=== PATIENT | male | born 1955 | race Two or more races ===

== ENCOUNTER 2023-11-17 18:55 | Observation (INO) | payer MEDICARE, OTHER, SELFPAY ==
--- NOTE | 2023-11-17 13:50 | ED.GENMED ---
History of Present Illness
General
Chief Complaint: Weakness
Source: patient and ambulance crew
Exam Limitations: none
Time Seen by Provider: 11/17/23 13:40
Nursing documentation reviewed up to this point in time: agreed with
Travel History
Have you had any contact with someone who has COVID-19?: No
Do you have any symptoms of coronavirus? Fever > 100 degrees, chills, cough, shortness of breath, sore throat, loss of taste or smell, muscle aches, or headache?: Yes
Symptoms:: cough headache
History of Present Illness
History of Present Illness:
68-year-old male with a past medical history of hemorrhagic stroke with residual left-sided weakness who presents to the emergency room via EMS from home for evaluation of flulike illness. Patient reports that he started feeling unwell last night
says that he started getting nasal congestion and has had a dry cough. He says that he has had generalized bodyaches. He says that this morning in addition to the symptoms he felt increasing generalized weakness and trouble getting up out of a
chair. EMS called to bring her to the emergency room for evaluation. He has not noticed any fever or chills. He denies any chest pain. He denies any shortness of breath. Denies any GI symptoms. Otherwise generalized weakness he denies any
focal weakness�he has chronic weakness in the left arm and left leg from his stroke as well as a left facial droop left upper from a stroke and he says these are unchanged. He does report a right-sided headache and he says that at least this
symptom is 'similar to when I had my stroke.'
Review of Systems
Review of Systems
All Other Systems: ROS reviewed and negative except as documented in HPI and ROS
Constitutional: Reports fatigue; Denies fever or chills
EENT: Reports runny nose and other (Congestion); Denies sore throat
Respiratory: Reports cough; Denies trouble breathing
Cardiac: Denies chest pain or palpitations
ABD/GI: Denies abdominal pain, nausea or vomiting
: Denies flank pain
Musculoskeletal: Reports muscle pain (Myalgias); Denies neck pain or back pain
Neurological: Reports headache and weakness (Generalized); Denies dizzy or numbness
Phy Exam
Physical Exam
Physical Exam:
General: Awake, alert, oriented x3; no acute distress
Head: Normocephalic, atraumatic
Eyes: Conjunctiva normal, EOMI, pupils equal round reactive to light bilateral
Throat: Airway intact, handling secretions
Neck: Trachea midline, supple without meningismus
Lungs: Clear to auscultation bilaterally, no wheezing, rales, rhonchi
Heart: Regular rate and rhythm, no murmurs, gallops, or rubs
Abd: Soft, non distended, nontender
Neuro: Patient has left-sided facial droop which he says is unchanged; speech is fluent without dysarthria or aphasia; he has left-sided weakness 3/5 in the upper and lower extremity which she says is unchanged; strength and sensation 5/5 right
upper and lower extremity
Skin: no rash
Extremities: No edema in extremities, equal pulses in all extremities
Scores
Heart Failure Risk
Heart Failure Risk Score: Not Applicable
Heart Score for Chest Pain Patients
STEMI patient?: Not applicable
Withdrawal Assessment of Alcohol
Withdrawal Assessment Completed?: Not applicable
Course
Orders/Labs/Results
Orders:
Orders
11/17/23 13:41
Electrocardiogram (*1) Urgent
Reason for Study: Other
Other Reason for Exam: Possible Stroke
Bedside Glucose- Treatment ONCE
Bedside Glucose- Treatment ONCE
Cardiac Monitoring- Treatment ONCE
Cardiac Monitoring- Treatment ONCE
EKG- Treatment ONCE
EKG- Treatment ONCE
IV Insert/Care/Rem.- Treatment PRN
Vital Signs- Treatment ONCE
Frequency: Hourly
Vital Signs As Directed
Frequency: Other
Weight As Directed
Frequency: Once
Comment: ZERO STRETCHER SCALE FOR ACCURATE WEIGHT
O2 Therapy [RESP] Urgent
Titrate/Wean O2 to maintain O2 sat greater than (%): 93
Special Instructions: MAINTAIN CONTINUOUS O2 SATS > OR = 93%
11/17/23 13:44
Complete Blood Count/With Diff Urgent
Comprehensive Metabolic Panel Urgent
PTT Urgent
Prothrombin Time Urgent
Troponin I Urgent
11/17/23 13:49
CT Head W/o Iv Contrast Urgent
Comment:
Reason For Exam: right sided headache
11/17/23 13:50
COVID-19 Antigen Urgent
Source: Nasal Swab
Influenza A+B Rapid Molecular Urgent
HORTENCIA Source: Nasal Swab
Specimen Description:
11/17/23 14:02
CR Chest - 2 Views Urgent
Comment:
Reason For Exam: cough
11/17/23 14:30
Case Management Consult ONCE
Case Management Consult: Discharge Planning
Pt Eval And Treat Urgent
Activity Level: Ambulate
11/17/23 Dinner
Regular
11/17/23 17:56
Oseltamivir Phosphate [Tamiflu] 75 mg PO NOW STA
11/17/23 18:37
Admit/Transfer Patient As Directed
Co-Sign Provider:
Level of Care: Observation services
Assign to:: Medical/Surgical
Physician / Group: [email or web address]
Diagnosis: influenza a infection
11/17/23 18:38
Code Status As Directed
Resuscitation Status: Full Code
11/17/23 19:33
Blood Culture Q30M
HORTENCIA Source: Blood/Venous
Specimen Description:
Blood Culture Q30M
HORTENCIA Source: Blood/Venous
Specimen Description:
11/17/23 19:53
Acetaminophen [Tylenol] 650 mg PO Q4HPRN PRN
11/17/23 19:53
Activity As Directed
Activity Level: As Tolerated
Vital Signs As Directed
Frequency: Per unit guidelines
Ot Eval And Treat Routine
DX Deep Vein Thrombosis Video Routine
11/17/23 20:00
Heparin 5,000 units SC Q12
METFORMIN HCl [Glucophage] 1,000 mg PO BID AT 0800,1700
11/18/23 06:00
Complete Blood Count/With Diff IN AM
Comprehensive Metabolic Panel IN AM
11/18/23 08:00
Baclofen [Lioresal] 10 mg PO DAILY
Cholecalciferol (Vitamin D3) [VITAMIN D3 (cholecalciferol)] 25 mcg PO DAILY
Labetalol [Trandate] 200 mg PO DAILY
Lisinopril [Zestril] 10 mg PO DAILY
Oseltamivir Phosphate [Tamiflu] 75 mg PO BID
11/18/23 18:00
Baclofen [Lioresal] 20 mg PO QPM
Citalopram [Celexa] 20 mg PO QPM
Rosuvastatin Calcium [Crestor] 5 mg PO QPM
Abnormal Lab Results
11/17/23 11/17/23
13:43 13:44
RBC 4.23 L 10^6/uL
(4.70-6.10)
Hgb 10.9 L g/dL
(13.0-18.0)
Hct 34.1 L %
(39.0-52.0)
MCH 25.8 L pg
(27.0-31.0)
MCHC 32.0 L g/dL
(33.0-37.0)
RDW 15.8 H %
(11.5-14.5)
Plt Count 126 L 10^3/uL
(130-400)
MPV 10.8 H fL
(7.4-10.4)
Absolute Lymphs (auto) 0.6 L 10^3/uL
(1.2-3.4)
Absolute Monos (auto) 0.7 H 10^3/uL
(0.1-0.6)
Neutrophils % 80.1 H %
(42.2-75.2)
Lymphocytes % 8.9 L %
(20.5-51.1)
Monocytes % 9.8 H %
(1.7-9.3)
Glucose 100 H mg/dl
(70-99)
POC Glucose 110 H mg/dl
(70-99)
11/17/23 13:44
11/17/23 13:44
Vital Signs
Initial and Last Documented VS:
Initial Vital Signs
Pulse Resp Pulse Ox
83 16 94
11/17/23 13:41 11/17/23 13:41 11/17/23 13:41
Last Documented Vital Signs
Temp Pulse Resp BP Pulse Ox
38.3 C H 93 20 126/80 93
11/17/23 18:36 11/17/23 19:30 11/17/23 19:30 11/17/23 16:06 11/17/23 16:15
MDM/Problems Addressed
Differential Diagnosis Includes:
Influenza, COVID, other viral illness, pneumonia, anemia, electrolyte derangement; much lower suspicion for stroke as he has no new focal weakness symptoms are more generalized
MDM/Problems Addressed:
68-year-old male presents for evaluation of congestion and cough, body aches and generalized weakness that started yesterday. He also has a right-sided headache. Vital signs are normal. Exam as above. Plan to place an IV check labs including a
CBC and a CMP, viral swabs. Will check an EKG. Will check CT head in an abundance of caution as patient says he has had brain hemorrhage with similar headache in the past. Will check a chest x-ray rule out pneumonia. Monitor closely reassess
after the above.
Labs reviewed: CBC shows marginal anemia otherwise unremarkable. CMP unremarkable. CT head negative, chest x-ray no acute disease. Patient's flu swab was positive which I think accounts for his symptoms. is now at bedside she is very
concerned about his functional status that she cannot care for him with his current degree of weakness. No clear medical indication for admission explained that he would likely benefit from rehab if this is the case. Case management evaluated
patient as did physical therapy unfortunately they were unable to place patient in rehab after the emergency room. Admitted to the hospitalist pending placement.
Chronic conditions affecting care:
Prior CVA
*Radiology
Radiology exam reviewed: preliminary read by ED provider and radiology read reviewed
*Pulse Oximetry
Patient hypoxic: no
*EKG
Interpreted by ED Provider?: Yes
Heart Rate: 83
Rate: normal
Rhythm: sinus
[place]: normal axis
Interval: normal interval
QRS Pattern: normal QRS
Ischemia: no ischemia
*Critical Care Note
Total Time (30-74mins, 75-104mins- exclusive of procedures): Not Applicable
Data Reviewed
Review of Other/Old Records Reveals: Labs and Records
Source: patient, records and ambulance crew
Patient Management
Social determinants of health affecting care: Living situation
Discussion with other providers: Hospitalist (Discussed with hospitalist) and Other (Discussed with PT, case management)
ED Attending Note
-
Portions of this chart may have been created with voice recognition software.� Occasional wrong word or��sound alike� substitutions may have occurred due to the inherent limitations of voice recognition software.
Discharge Plan
Departure
Patient Disposition: Admit
Date of Disposition: 11/17/23
Time of Disposition: 17:56
Admit to doctor: Rivas
Presentation/result/management discussed w/ accepting MD/DO: Hospitalist
Discharge Problem:
Influenza, Ambulatory dysfunction
Interventions
Interventions:
*Risk Screen - Suicide Last Done: 11/17/23 13:54
*General Assessment Last Done: 11/17/23 13:54
*Neglect/Abuse Screening Last Done: 11/17/23 13:54
ED- Fall Risk Assessment Last Done: 11/17/23 13:48
*ED COVID-19 Vaccine History Last Done: 11/17/23 13:48
*Nursing Disposition Last Done: 11/17/23 19:46
ED- Pulmonary Assessment Last Done: 11/17/23 16:00
ED- Neurological Assessment Last Done: 11/17/23 16:00
ED- Cardiac Assessment Last Done: 11/17/23 16:00
ED Swallowing Screen Last Done: 11/17/23 18:20
Discharge Date and Time
Discharge Date/Time: 11/17/23 19:47
[2023-11-17 13:52] LABS: % Basophils 0.4 % (0-2); % Eosinophils 0.4 % (0-6); % Immature Granulocytes 0.4 % (0-0.5); % Lymphocytes 8.9 % (20.5-51.1); % Monocytes 9.8 % (1.7-9.3); % Neutrophils 80.1 % (42.2-75.2); Absolute Lymphocytes 0.6 10^3/uL (1.2-3.4); Absolute Monocytes 0.7 10^3/uL (0.1-0.6); Absolute Neutrophils 5.5 10^3/uL (1.4-6.5); Hematocrit 34.1 % (39.0-52.0); Hemoglobin 10.9 g/dL (13.0-18.0); Mean Corpuscular Hgb 25.8 pg (27.0-31.0); Mean Corpuscular Volume 80.6 fL (80.0-94.0); Mean Platelet Volume 10.8 fL (7.4-10.4); Nucleated Red Blood Cells % 0 % (-); Platelet Count 126 10^3/uL (130-400); Red Blood Cell Count 4.23 10^6/uL (4.70-6.10); Red Cell Dist. Width 15.8 % (11.5-14.5); White Blood Cell Count 6.9 10^3/uL (4.8-10.8)
[2023-11-17 13:54] LABS: Glucose - Point of Care 110 mg/dl (70-99)
[2023-11-17 13:55] VITALS: BP 130/71
[2023-11-17 14:00] VITALS: BP 116/68
[2023-11-17 14:06] LABS: ALT (SGPT) 19 U/L (0-50); AST (SGOT) 22 U/L (17-59); Albumin 4.5 g/dl (3.5-5.0); Alkaline Phosphatase 86 U/L (38-126); Blood Urea Nitrogen 20 mg/dl (9-20); Calcium 8.9 mg/dl (8.4-10.2); Carbon Dioxide 25 mmol/L (22-30); Chloride 105 mmol/L (98-107); Glucose 100 mg/dl (70-99); Potassium 4.2 mmol/L (3.5-5.1); Sodium 138 mmol/L (135-145); eGFR > 60.00
[2023-11-17 14:07] LABS: APTT 33.6 Sec (23.4-35.0)
[2023-11-17 14:09] LABS: COVID-19 Antigen Negative (Negative)
[2023-11-17 14:18] LABS: Troponin I < 0.012 ng/ml
[2023-11-17 15:00] VITALS: BP 111/74
--- NOTE | 2023-11-17 15:26 | CM ---
CM was consulted for discharge planning. CM met with patient and in room. Patient's stated that she feels he is too weak and she cannot manage him physically at home. She would like him to go to rehab. CM advised that since patient is not
admitted the rehab would not be paid for by Medicare. CM discussed the [facility] program options. Patient is eligible as per Herlinda Garza at [facility], but the ER physicians are not currently under the program as approved providers. CM discussed
SNF options through this program and patient is not agreeable to it at this time. Also, patient can self pay for rehab if patient is under OBSERVATION.
Patient's was upset and was demanding that patient be inpatient. CM advised that physician will have to make a decision on level of care. If patient is inpatient for three nights, the [facility] and other facilities would be available. Patient's
stated that she put in a LTC application with [facility] and is awaiting approval.
CM updated the ER physician.
[2023-11-17 16:06] VITALS: BP 126/80
[2023-11-17] MEDS: TAMIFLU 75 MG PO (18:31)
--- NOTE | 2023-11-17 18:41 | HPS.HSE ---
Family Physician
-
Family Physician: Deepthi Saldaña
Chief Complaint
-
weakness
History of Present Illness
68-year-old male with past medical history of hemorrhagic stroke with residual left-sided weakness, left facial droop, hypertension, diabetes, anxiety/depression, presenting with feeling unwell last night nasal congestion and dry cough as well as
generalized bodyaches. This morning he felt generalized weakness and trouble getting out of chair. Denies fevers or chills. He denies any chest pain. Denies any shortness of breath. Denies any nausea vomiting or abdominal pain or diarrhea. He
also has right-sided headache similar to when he previously had stroke.
He denies any sick contacts.
He is a former smoker. He drinks alcohol occasionally.
Medical History
Past Medical History
Past Medical History: Reports Other (hemorrhagic stroke with residual left-sided weakness, left facial droop, hypertension, diabetes, anxiety/depression)
Past Surgical History: Reports None
Social History
Tobacco: Former Smoker
Alcohol: Occasional
Drug: None
Family History
Family History: Not pertinent
Allergies / Home Medications
Allergies reflects when Allergies were last updated in [employer].
Home Medications with original date entered in [employer]
Allergy/Medication List:
Allergies
Allergy/AdvReac Type Severity Reaction Status Date / Time
Penicillins Allergy Unknown Verified 11/17/23 13:42
Sulfa (Sulfonamide Allergy Unknown Verified 11/17/23 13:42
Antibiotics)
Home Medications
acetaminophen 500 mg tablet 1,000 mg PO Q4H PRN mild pain/fever 11/17/23
baclofen 10 mg tablet 10 mg PO DAILY 11/17/23
baclofen 10 mg tablet 20 mg PO QPM 11/17/23
cholecalciferol (vitamin D3) 25 mcg (1,000 unit) tablet (Vitamin D3) 25 mcg PO DAILY 11/17/23
citalopram 20 mg tablet 20 mg PO QPM 11/17/23
labetalol 200 mg tablet 200 mg PO DAILY 11/17/23
lisinopril 10 mg tablet 10 mg PO DAILY 11/17/23
metformin 1,000 mg tablet 1,000 mg PO BID 11/17/23
rosuvastatin 5 mg tablet 5 mg PO QPM 11/17/23
Review of Systems
-
History Source: Patient
A 12 point ROS was completed and negative except as noted: Yes
Constitutional: Reports No Symptoms
EENT: Reports No Symptoms
Respiratory: Reports See HPI
Cardiac: Reports No Symptoms
Abdomen/GI: Reports No Symptoms
: Reports No Symptoms
Musculoskeletal: Reports No Symptoms
Skin: Reports No Symptoms
Neurological: Reports No Symptoms
Endocrine: Reports No Symptoms
Hematologic/Lymphatic: Reports No Symptoms
Psych: Reports No Symptoms
Physical Exam
Vital Signs
Vital Signs
Temp Pulse Resp BP Pulse Ox
100.9 F H 92 24 126/80 93
11/17/23 18:36 11/17/23 18:30 11/17/23 18:30 11/17/23 16:06 11/17/23 16:15
Physical Exam
General: Well Developed, Well Nourished and No Apparent Distress
HEENT: NormoCephalic, Moist mucous membranes and Atraumatic
Respiratory: Clear
Cardiac: S1/S2 and Regular Rhythm; No Murmur or Rub
GI: Soft, Non Tender, Non Distended and Normal Bowel Sounds; No Organomegaly
Rectal: Deferred by Provider
Musculoskeletal: No Clubbing, No Cyanosis and No Edema
Skin: No Rash
Neuro: Nonfocal/grossly intact
Laboratory Results
-
11/17/23 13:44
11/17/23 13:44
Laboratory Results
PT 14.0 Sec (11.4-14.6) 11/17/23 13:44
INR 1.10 11/17/23 13:44
APTT 33.6 Sec (23.4-35.0) 11/17/23 13:44
Total Bilirubin 1.0 mg/dl (0.2-1.3) 11/17/23 13:44
AST 22 U/L (17-59) 11/17/23 13:44
ALT 19 U/L (0-50) 11/17/23 13:44
Alkaline Phosphatase 86 U/L (38-126) 11/17/23 13:44
Troponin I < 0.012 ng/ml 11/17/23 13:44
Data Reviewed
-
Lab Data: Labs Reviewed by me
Old Records: Reviewed
Impression/Plan
-
IMPRESSION:
PLAN:
# Influenza A infection
-Low-grade fever
-Check blood cultures
-Tamiflu
-Tylenol
-Chest x-ray unremarkable
-CT head no acute abnormality
-PT/OT
History of hemorrhagic stroke with residual left-sided weakness/left-sided facial droop
-Continue baclofen
-Continue statin
Essential hypertension
-Continue labetalol, lisinopril
Type 2 diabetes
-Continue metformin
Anxiety/depression
-Continue citalopram
Anemia unknown chronicity
-Hemoglobin 10.9
Thrombocytopenia unknown chronicity
-Platelets 126
Full code
DVT prophylaxis�heparin
Regular diet
[2023-11-17 20:00] VITALS: BP 152/78
--- NOTE | 2023-11-17 20:23 | PTCARENOTE ---
Pt arrived to floor from Ed via stretcher, pt w/ HX of stroke and has L-sided weakness and needed to be pulled over from stretcher to bed. Pt AAOx3, vitals obtained and stable, call aponte given and oriented to room. Will continue to monitor.
[2023-11-17 20:45] LABS: Glucose - Point of Care 83 mg/dl (70-99)
[2023-11-17] MEDS: GLUCOPHAGE 1000 MG PO (21:56)
[2023-11-17] MEDS: HEPARIN 5000 UNITS SC (21:56)
[2023-11-17 23:00] VITALS: BP 125/79
[2023-11-18] MEDS: TYLENOL 650 MG PO ×2 (03:25→15:34)
[2023-11-18 06:00] VITALS: BMI 34.8
[2023-11-18 07:14] LABS: % Basophils 0.4 % (0-2); % Eosinophils 0.2 % (0-6); % Immature Granulocytes 0.4 % (0-0.5); % Lymphocytes 10.4 % (20.5-51.1); % Monocytes 11.9 % (1.7-9.3); % Neutrophils 76.7 % (42.2-75.2); Absolute Lymphocytes 0.6 10^3/uL (1.2-3.4); Absolute Monocytes 0.6 10^3/uL (0.1-0.6); Absolute Neutrophils 4.1 10^3/uL (1.4-6.5); Hematocrit 32.5 % (39.0-52.0); Hemoglobin 10.5 g/dL (13.0-18.0); Mean Corp Hgb Conc. 32.3 g/dL (33.0-37.0); Mean Corpuscular Volume 80.4 fL (80.0-94.0); Nucleated Red Blood Cells % 0 % (-); Platelet Count 109 10^3/uL (130-400); Red Blood Cell Count 4.04 10^6/uL (4.70-6.10); White Blood Cell Count 5.4 10^3/uL (4.8-10.8)
[2023-11-18 07:58] VITALS: BP 128/69
[2023-11-18 08:01] LABS: ALT (SGPT) 15 U/L (0-50); AST (SGOT) 19 U/L (17-59); Alkaline Phosphatase 69 U/L (38-126); Blood Urea Nitrogen 19 mg/dl (9-20); Calcium 9.1 mg/dl (8.4-10.2); Carbon Dioxide 28 mmol/L (22-30); Chloride 98 mmol/L (98-107); Estimated Creatinine Clearance 103 ml/min; Glucose 102 mg/dl (70-99); Potassium 3.4 mmol/L (3.5-5.1); Sodium 139 mmol/L (135-145); Total Bilirubin 1.2 mg/dl (0.2-1.3); Total Protein 6.6 g/dl (6.3-8.2); eGFR > 60.00
[2023-11-18 08:39] LABS: Glucose - Point of Care 107 mg/dl (70-99)
--- NOTE | 2023-11-18 08:58 | W.PN.HOSP.TC ---
Today's Communication/Plan
-
Continue Tamiflu
Have PT OT assess for placement
Monitor electrolyte status
Assessment / Plan
Assessment / Plan
68-year-old male with past medical history of hemorrhagic stroke with residual left-sided weakness, left facial droop, hypertension, diabetes, anxiety/depression, presenting with feeling unwell last night nasal congestion and dry cough as well as
generalized bodyaches.� This morning he felt generalized weakness and trouble getting out of chair.� Denies fevers or chills.� He denies any chest pain.� Denies any shortness of breath.� Denies any nausea vomiting or abdominal pain or diarrhea.� He
also has right-sided headache similar to when he previously had stroke.
He denies any sick contacts.
He is a former smoker.� He drinks alcohol occasionally.
Spouse having difficulty in caring for his needs specially with acute illness/personnel generalist manager tried to place but unsuccessfully
PLAN:
# Influenza A infection
-Low-grade fever
-Check blood cultures
-Tamiflu/just side window but hospitalization warrants treatment x 5 days
-Tylenol
-Chest x-ray unremarkable
-CT head no acute abnormality
-PT/OT will need rehab after assessment
History of hemorrhagic stroke with residual left-sided weakness/left-sided facial droop
-Continue baclofen
-Continue statin
Essential hypertension
-Continue labetalol, lisinopril
Type 2 diabetes
-Continue metformin
Anxiety/depression
-Continue citalopram
Anemia unknown chronicity
-Hemoglobin 10.9
Thrombocytopenia unknown chronicity
-Platelets 126
Full code
DVT prophylaxis�heparin
Regular diet
Anticipated Discharge: Within 24 hours
Subjective/Interval History
-
Date of Service: November 18, 2023
States he is feeling better with less cough and congestion. Has been having some bodyaches which she also feels is better. He has left hemiparesis from previous CVA
Objective Data
-
Labs:
Laboratory Results
11/18/23
06:04
WBC 5.4
Hgb 10.5 L
Hct 32.5 L
Plt Count 109 L
Sodium 139
Potassium 3.4 L
Chloride 98
Carbon Dioxide 28
BUN 19
Creatinine 0.8
Glucose 102 H
Calcium 9.1
Total Bilirubin 1.2
AST 19
ALT 15
Alkaline Phosphatase 69
Vital Signs:
Vital Signs
Temp Pulse Resp BP Pulse Ox
97.8 F 87 18 128/69 95
11/18/23 07:58 11/18/23 07:58 11/18/23 07:58 11/18/23 07:58 11/18/23 07:58
I&O
11/17/23 11/18/23 11/19/23
06:59 06:59 06:59
Intake Total 330 / 330
Output Total 1050 / 1050
Balance -720 / -720
Review of Systems
-
Unable to obtain full review of systems at this time due to: Dementia
History Source: Patient
Constitutional: Reports Weakness (Left side)
Respiratory: Reports No Symptoms
Cardiac: Reports No Symptoms
Physical Exam
-
HEENT: Normocephalic
Respiratory: Clear to Auscultation
Cardiac: Regular Rhythm
Breast: Deferred by me
GI: Soft
Neuro: Awake and Alert; Negative Nonfocal/Grossly Intact (Left-sided hemiparetic)
Psych: Calm
Data Reviewed
-
Total Time Spent with Patient (in minutes): 56
Labs: Labs Reviewed by me
[2023-11-18] MEDS: GLUCOPHAGE 1000 MG PO ×2 (09:41→17:28)
[2023-11-18] MEDS: TRANDATE 200 MG PO (09:41)
[2023-11-18] MEDS: ZESTRIL 10 MG PO (09:41)
[2023-11-18] MEDS: VITAMIN D3 (cholecalciferol) 25 MCG PO (09:42)
[2023-11-18] MEDS: LIORESAL 10 MG PO (09:42)
[2023-11-18] MEDS: HEPARIN 5000 UNITS SC (09:43)
[2023-11-18] MEDS: TAMIFLU 75 MG PO ×2 (09:43→19:38)
[2023-11-18 11:49] LABS: Glucose - Point of Care 125 mg/dl (70-99)
[2023-11-18] MEDS: KCL 20 MEQ PO (12:38)
[2023-11-18 15:04] VITALS: BP 111/65; BP 112/62
[2023-11-18 15:28] VITALS: BP 112/67
[2023-11-18] MEDS: ANESTHETIC LOZENGE 1 LOZENGE PO ×2 (15:34→23:20)
[2023-11-18] MEDS: CELEXA 20 MG PO (17:27)
[2023-11-18] MEDS: CRESTOR 5 MG PO (17:27)
[2023-11-18] MEDS: LIORESAL 20 MG PO (17:28)
[2023-11-18 17:45] LABS: Glucose - Point of Care 109 mg/dl (70-99)
[2023-11-18 21:27] LABS: Glucose - Point of Care 110 mg/dl (70-99)
[2023-11-18 23:10] VITALS: BP 130/73
[2023-11-19 07:07] LABS: Hematocrit 34.3 % (39.0-52.0); Hemoglobin 10.9 g/dL (13.0-18.0); Mean Corp Hgb Conc. 31.8 g/dL (33.0-37.0); Mean Corpuscular Hgb 26.3 pg (27.0-31.0); Mean Corpuscular Volume 82.7 fL (80.0-94.0); Mean Platelet Volume 10.9 fL (7.4-10.4); Platelet Count 107 10^3/uL (130-400); Red Blood Cell Count 4.15 10^6/uL (4.70-6.10); Red Cell Dist. Width 15.8 % (11.5-14.5); White Blood Cell Count 4.4 10^3/uL (4.8-10.8)
[2023-11-19 07:32] LABS: Blood Urea Nitrogen 23 mg/dl (9-20); Calcium 8.8 mg/dl (8.4-10.2); Carbon Dioxide 31 mmol/L (22-30); Chloride 101 mmol/L (98-107); Estimated Creatinine Clearance 92 ml/min; Glucose 102 mg/dl (70-99); Potassium 3.8 mmol/L (3.5-5.1); Sodium 141 mmol/L (135-145); eGFR > 60.00
[2023-11-19 07:54] LABS: Glucose - Point of Care 103 mg/dl (70-99)
[2023-11-19 08:03] VITALS: BP 137/81
[2023-11-19] MEDS: VITAMIN D3 (cholecalciferol) 25 MCG PO (09:06)
[2023-11-19] MEDS: ZESTRIL 10 MG PO (09:06)
[2023-11-19] MEDS: LIORESAL 10 MG PO (09:06)
[2023-11-19] MEDS: TRANDATE 200 MG PO (09:07)
[2023-11-19] MEDS: GLUCOPHAGE 1000 MG PO ×2 (09:07→17:09)
[2023-11-19] MEDS: TAMIFLU 75 MG PO ×2 (09:07→19:24)
--- NOTE | 2023-11-19 09:07 | W.PN.HOSP.TC ---
Today's Communication/Plan
-
No new complaints and remains on oxygen will await family to bring in his CPAP and await case management for disposition to a rehab facility
Assessment / Plan
Assessment / Plan
68-year-old male with past medical history of hemorrhagic stroke with residual left-sided weakness, left facial droop, hypertension, diabetes, anxiety/depression, presenting with feeling unwell last night nasal congestion and dry cough as well as
generalized bodyaches.� This morning he felt generalized weakness and trouble getting out of chair.� Denies fevers or chills.� He denies any chest pain.� Denies any shortness of breath.� Denies any nausea vomiting or abdominal pain or diarrhea.� He
also has right-sided headache similar to when he previously had stroke.
He denies any sick contacts.
He is a former smoker.� He drinks alcohol occasionally.
Spouse having difficulty in caring for his needs specially with acute illness/network services project manager tried to place but unsuccessfully
PLAN:
# Influenza A infection
-Low-grade fever now resolved
-Check blood cultures remaining negative
-Tamiflu/just side window but hospitalization warrants treatment x 5 days
-Tylenol
-Chest x-ray unremarkable
-CT head no acute abnormality
-PT/OT will need rehab after assessment
History of hemorrhagic stroke with residual left-sided weakness/left-sided facial droop
-Continue baclofen
-Continue statin
-Family did not want chemical DVT prophylaxis
Essential hypertension
-Continue labetalol, lisinopril
Type 2 diabetes
-Continue metformin
Anxiety/depression
-Continue citalopram
Anemia unknown chronicity
-Hemoglobin 10.9
Thrombocytopenia unknown chronicity
-Platelets 126
Full code
DVT prophylaxis�heparin
Regular diet
Anticipated Discharge: Within 24 hours
Subjective/Interval History
-
Date of Service: November 19, 2023
Continues to state that he is feeling better no further body aches he has not been febrile only wheezing he is wearing oxygen as he has not had his usual CPAP brought in by his family which will be done today.
Objective Data
-
Labs:
Laboratory Results
11/19/23
06:27
WBC 4.4 L
Hgb 10.9 L
Hct 34.3 L
Plt Count 107 L
Sodium 141
Potassium 3.8
Chloride 101
Carbon Dioxide 31 H
BUN 23 H
Creatinine 0.9
Glucose 102 H
Calcium 8.8
Vital Signs:
Vital Signs
Temp Pulse Resp BP Pulse Ox
97.7 F 76 16 137/81 95
11/19/23 08:03 11/19/23 08:03 11/19/23 08:03 11/19/23 08:03 11/19/23 08:03
I&O
11/18/23 11/19/23 11/20/23
06:59 06:59 06:59
Intake Total 330 / 330 1320 / 1320
Output Total 1050 / 1050 1900 / 1900 800 / 800
Balance -720 / -720 -580 / -580 -800 / -800
Review of Systems
-
All other systems: Not reviewed unless documented
Physical Exam
-
General: Well Developed
HEENT: Normocephalic
Respiratory: Clear to Auscultation
Cardiac: Regular Rhythm
Neuro: Awake, Oriented and AO x 3; Negative No Motor Deficits (Left-sided paresis)
Psych: Calm
Data Reviewed
-
Total Time Spent with Patient (in minutes): 45
Labs: Labs Reviewed by me
[2023-11-19 12:09] LABS: Glucose - Point of Care 107 mg/dl (70-99)
[2023-11-19 15:00] VITALS: BP 121/62
[2023-11-19] MEDS: CELEXA 20 MG PO (17:09)
[2023-11-19] MEDS: CRESTOR 5 MG PO (17:10)
[2023-11-19] MEDS: LIORESAL 20 MG PO (17:10)
[2023-11-20 00:19] VITALS: BP 141/74
[2023-11-20] MEDS: TAMIFLU 75 MG PO (07:22)
[2023-11-20] MEDS: GLUCOPHAGE 1000 MG PO (07:22)
[2023-11-20] MEDS: TRANDATE 200 MG PO (07:23)
[2023-11-20] MEDS: VITAMIN D3 (cholecalciferol) 25 MCG PO (07:23)
[2023-11-20] MEDS: LIORESAL 10 MG PO (07:23)
[2023-11-20] MEDS: ZESTRIL 10 MG PO (07:23)
[2023-11-20] MEDS: TESSALON PERLES 100 MG PO (07:26)
--- NOTE | 2023-11-20 13:44 | W.PN.HOSP.TC ---
Addendum entered and electronically signed by Micah Crane MD 11/20/23 16:42:
[id number]
Original Note:
Today's Communication/Plan
-
tamiflu x 5 days total
incentive spior
f/u pcp within 1 week
Assessment / Plan
Assessment / Plan
68-year-old male with past medical history of hemorrhagic stroke with residual left-sided weakness, left facial droop, hypertension, diabetes, anxiety/depression, presenting with feeling unwell last night nasal congestion and dry cough as well as
generalized bodyaches.� This morning he felt generalized weakness and trouble getting out of chair.� Denies fevers or chills.� He denies any chest pain.� Denies any shortness of breath.� Denies any nausea vomiting or abdominal pain or diarrhea.� He
also has right-sided headache similar to when he previously had stroke.
He denies any sick contacts.
He is a former smoker.� He drinks alcohol occasionally.
Spouse having difficulty in caring for his needs specially with acute illness/conference services manager tried to place but unsuccessfully
PLAN:
# Influenza A infection
-Low-grade fever now resolved
- blood cultures negative
-Tamiflu/just side window but hospitalization warrants treatment x 5 days (D3)
-Tylenol
-Chest x-ray unremarkable
-CT head no acute abnormality
-PT/OT will need rehab after assessment
History of hemorrhagic stroke with residual left-sided weakness/left-sided facial droop
-Continue baclofen
-Continue statin
-Family did not want chemical DVT prophylaxis
Essential hypertension
-Continue labetalol, lisinopril
Type 2 diabetes
-Continue metformin
Anxiety/depression
-Continue citalopram
Anemia unknown chronicity
-Hemoglobin 10.9
Thrombocytopenia unknown chronicity
-Platelets 126
Full code
DVT prophylaxis�heparin
Regular diet
More than 30 minutes spent in discharge including
Final examination of the patient
Summarizing hospital stay
Instructions for continuing care to all relevant caregivers
Preparation of discharge records, prescriptions, and referral forms
Total time spent (35 in minutes):
Anticipated Discharge: Today
Subjective/Interval History
-
Date of Service: November 20, 2023
no acute events
Objective Data
-
Vital Signs:
Vital Signs
Temp Pulse Resp BP Pulse Ox
98.3 F 76 20 155/91 97
11/20/23 00:19 11/20/23 07:23 11/20/23 00:19 11/20/23 07:23 11/20/23 00:19
I&O
11/19/23 11/20/23 11/21/23
06:59 06:59 06:59
Intake Total 1320 / 1320 1860 / 1860
Output Total 1900 / 1900 2100 / 2100
Balance -580 / -580 -240 / -240
Review of Systems
-
History Source: Patient
All other systems: Not reviewed unless documented
Data Reviewed
-
Total Time Spent with Patient (in minutes): 45
Diagnostic Radiology: Image personally visualized and interpreted and Report Reviewed by me
CT Scan: Image personally visualized and interpreted and Report Reviewed by me
Labs: Labs Reviewed by me
--- NOTE | 2023-11-20 13:47 | W.DS.TRANS ---
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
-
Discharge Instructions:
Discharge Diagnosis/Procedures Influenza A
Prior CVA with left hemiparesis
Obstructive sleep apnea
Diet Low Cholesterol,Low Fat,Diabetic, Carb
Controlled
Activity As tolerated
Driving Restrictions No driving
Instructions:
Stand-Alone Forms:
Changes to Home Medications: Yes
Discharge Medications:
DC Medications w/original date entered in [employer] [facility]
acetaminophen 500 mg tablet 1,000 mg PO Q4H PRN mild pain/fever 11/17/23
baclofen 10 mg tablet 10 mg PO DAILY Muscle Spasms 11/17/23
baclofen 10 mg tablet 20 mg PO QPM Muscle Spasms 11/17/23
cholecalciferol (vitamin D3) 25 mcg (1,000 unit) tablet (Vitamin D3) 25 mcg PO DAILY Supplement 11/17/23
citalopram 20 mg tablet 20 mg PO QPM Mental Health/Anxiety 11/17/23
labetalol 200 mg tablet 200 mg PO DAILY Blood Pressure 11/17/23
lisinopril 10 mg tablet 10 mg PO DAILY Blood Pressure 11/17/23
metformin 1,000 mg tablet 1,000 mg PO BID Diabetes 11/17/23
rosuvastatin 5 mg tablet 5 mg PO QPM High Cholesterol 11/17/23
benzonatate 100 mg capsule 100 mg PO TIDPRN PRN cough #0 caps 11/20/23
oseltamivir 75 mg capsule 75 mg PO BID #0 caps 11/20/23
Home Medication Changes
benzonatate 100 mg capsule 100 mg PO TIDPRN PRN cough #0 caps 11/20/23
oseltamivir 75 mg capsule 75 mg PO BID #0 caps 11/20/23
Pending Results: No
--- NOTE | 2023-11-20 14:23 | CM ---
CM reviewed pt with Dr swapnil martinez for dc
Call with spouse to discuss planning
She is requesting pt go to [facility] for LT care
Noted she put in financial aroldo for LTC a number of weeks ago
Per [facility]/admissions, pt accepted for LTC private pay
Will not obtain skilled time through Medicare due to OBS status
Will need private payment up front $7700
Call to spouse and she is in agreement with plan
Medical necessity and transport form on chart
Ambulance arranged for 530[facility] pickup
Home cpap bedside and will need to be transported with pt
Discharge Disposition PR pribate pay for LTC via ambulance [facility] pickup
Phone- [phone] Fax- [phone]
HOME CPAP TO BE TRANSPORTED WITH PATIENT
[2023-11-20 15:37] VITALS: BP 139/78
== END 2023-11-20 18:19 ==
LOC: 3 WEST ACU 18:55
PROVIDERS: Internal Medicine; ADMITTING PHYSICIAN Hospitalist; ATTENDING PHYSICIAN Internal Medicine; EMERGENCY PHYSICIAN Emergency Medicine; FAMILY PHYSICIAN Physician Assistant
DX: J10.1 Influenza due to other identified influenza virus with other respiratory manifestations (principal); I69.354 Hemiplegia and hemiparesis following cerebral infarction affecting left non-dominant side; I69.392 Facial weakness following cerebral infarction; I10 Essential (primary) hypertension; E11.9 Type 2 diabetes mellitus without complications; F32.A Depression, unspecified; F41.9 Anxiety disorder, unspecified; D69.6 Thrombocytopenia, unspecified; D64.9 Anemia, unspecified; G47.33 Obstructive sleep apnea (adult) (pediatric); Z11.52 Encounter for screening for COVID-19; Z79.84 Long term (current) use of oral hypoglycemic drugs; Z79.899 Other long term (current) drug therapy; Z87.891 Personal history of nicotine dependence
CPT/HCPCS: 70450; 71046; 80048; 80053; 82962; 84484; 85025; 85027; 85610; 85730; 87040; 87502; 87811; 93005; 97163; 97167; 99285; G0378

== ENCOUNTER → 2024-01-24 10:47 | Outpatient (REF) | payer MEDICARE, OTHER, SELFPAY ==
[2024-01-24 11:49] LABS: % Basophils 0.6 % (0-2); % Eosinophils 1.3 % (0-6); % Immature Granulocytes 0.6 % (0-0.5); % Lymphocytes 21.9 % (20.5-51.1); % Monocytes 10.4 % (1.7-9.3); % Neutrophils 65.2 % (42.2-75.2); Absolute Eosinophils 0.1 10^3/uL (0-0.7); Absolute Lymphocytes 1.5 10^3/uL (1.2-3.4); Absolute Monocytes 0.7 10^3/uL (0.1-0.6); Absolute Neutrophils 4.6 10^3/uL (1.4-6.5); Hematocrit 31.3 % (39.0-52.0); Mean Corp Hgb Conc. 31.9 g/dL (33.0-37.0); Mean Corpuscular Hgb 26.5 pg (27.0-31.0); Mean Corpuscular Volume 82.8 fL (80.0-94.0); Mean Platelet Volume 12.1 fL (7.4-10.4); Nucleated Red Blood Cells % 0 % (-); Platelet Count 127 10^3/uL (130-400); Red Blood Cell Count 3.78 10^6/uL (4.70-6.10); Red Cell Dist. Width 16.1 % (11.5-14.5)
[2024-01-24 13:01] LABS: Glycohemoglobin (HgbA1c) 5.8 % (4.0-5.6)
[2024-01-24 13:13] LABS: ALT (SGPT) 14 U/L (0-50); AST (SGOT) 20 U/L (17-59); Albumin 4.1 g/dl (3.5-5.0); Alkaline Phosphatase 73 U/L (38-126); Blood Urea Nitrogen 23 mg/dl (9-20); Calcium 9.3 mg/dl (8.4-10.2); Carbon Dioxide 27 mmol/L (22-30); Chloride 104 mmol/L (98-107); Glucose 98 mg/dl (70-99); HDL Cholesterol 22 mg/dl; LDL Cholesterol, Calculated 46 mg/dl; Potassium 4.2 mmol/L (3.5-5.1); Sodium 140 mmol/L (135-145); Total Bilirubin 0.5 mg/dl (0.2-1.3); Total Cholesterol 93 mg/dl (50-199); Total Protein 6.2 g/dl (6.3-8.2); Triglyceride 129 mg/dl (10-149); Very Low Density Lipoprotein 25 mg/dl (0-30); eGFR > 60.00
[2024-01-24 13:34] LABS: TSH 1.23 uIU/ml (0.47-4.68)
== END ==
LOC: OLABP 10:47
PROVIDERS: ATTENDING PHYSICIAN Student in an Organized Health Care Education/Training Program
DX: D69.6 Thrombocytopenia, unspecified (principal); I69.392 Facial weakness following cerebral infarction; F41.9 Anxiety disorder, unspecified; F32.9 Major depressive disorder, single episode, unspecified; M62.81 Muscle weakness (generalized); R26.2 Difficulty in walking, not elsewhere classified; I10 Essential (primary) hypertension; E11.9 Type 2 diabetes mellitus without complications; E55.9 Vitamin D deficiency, unspecified
CPT/HCPCS: 36415; 80053; 80061; 82306; 83036; 84443; 85025

== ENCOUNTER → 2024-02-28 14:09 | Outpatient (REF) | payer MEDICARE, OTHER, SELFPAY ==
[2024-02-28 15:31] LABS: Vitamin D, 25-OH*** 39.7 ng/mL (30-80)
== END ==
LOC: OLABP 14:09
PROVIDERS: ATTENDING PHYSICIAN Student in an Organized Health Care Education/Training Program
DX: D69.6 Thrombocytopenia, unspecified (principal); I69.392 Facial weakness following cerebral infarction; F41.9 Anxiety disorder, unspecified; F32.9 Major depressive disorder, single episode, unspecified; M62.81 Muscle weakness (generalized); R26.2 Difficulty in walking, not elsewhere classified; I10 Essential (primary) hypertension; E11.9 Type 2 diabetes mellitus without complications; Z79.899 Other long term (current) drug therapy
CPT/HCPCS: 36415; 82306

== ENCOUNTER 2024-04-02 14:12 | Emergency (ER) | payer MEDICARE, OTHER, SELFPAY ==
[2024-04-02 14:34] VITALS: BP 139/71
--- NOTE | 2024-04-02 16:22 | ED.GENMED ---
History of Present Illness
General
Chief Complaint: Musculo-Skeletal Complaint
Source: patient
Exam Limitations: none
Time Seen by Provider: 04/02/24 15:32
Nursing documentation reviewed up to this point in time: agreed with
History of Present Illness
History of Present Illness:
69 y/o M with h/o cva left sided weakness after stroke, wears brace for L foot
here with right knee pain when he stood up today
he felt a grinding in the knee and then heard a pop and had to sit back down
he apparently was not able to bear weight for paramedics to walk him
he has since had tylenol and has been comfortable at rest
no significant swelling
denies hip pain, pelvic pain, anle pain
no numbness/tingling/weakness.
Past History
Past History
ED Past Medical History: CVA, HTN, Hypercholesterolemia and NIDDM
Social History
Tobacco: Former smoker
Review of Systems
Review of Systems
Allergies reviewed?: Yes
All Other Systems: Not applicable
Phy Exam
Physical Exam
Physical Exam:
GENERAL: Alert , in no apparent distress, comfortable at rest
HEAD: NCAT
CV: 2+ DP PULSES B/L
NEUROLOGICAL: Alert and oriented, strength intact right side; left side hemiparesis
SKIN: Warm and dry,
MUSCULOSKELETAL: mild STS right ankle with tenderness to malleolus medially; pain with inversion and eversion;
no tenderness at the base of the 5th metatarsal, no other foot tenderness
no knee/prox tib/fib tenderness, full painless ROM;
PSYCH: Normal and appropriate interaction.
Course
Orders/Labs/Results
Orders:
Orders
04/02/24 14:39
Knee, Right 4 or More Views [CR Knee- Right 4 Or More View*] Urgent
Comment:
Reason For Exam: right knee injury
04/02/24 16:28
CT Lower Ext W/o Iv Cont Rt Urgent
Comment: cva L sided weakness, this is good leg
Reason For Exam: pop in right knee, cannot bear weight;
Ibuprofen [Motrin] 600 mg PO NOW STA
Vital Signs
Initial and Last Documented VS:
Initial Vital Signs
Temp Pulse Resp BP Pulse Ox
98 F 76 18 139/71 95
04/02/24 14:34 04/02/24 14:34 04/02/24 14:34 04/02/24 14:34 04/02/24 14:34
Last Documented Vital Signs
Temp Pulse Resp BP Pulse Ox
98.2 F 73 18 165/83 90
04/02/24 18:53 04/02/24 18:53 04/02/24 14:34 04/02/24 18:53 04/02/24 18:53
MDM/Problems Addressed
Differential Diagnosis Includes:
ligamentous injury, tibial plateau fracture, meniscus tear
MDM/Problems Addressed:
69 y/o M fro mpine run
has been in skilled rehab since stroke with h/o L weakness, L foot drop wears a brace
here with pain in the righ tkne when he stood up today
felt pop and can't really weight bear on this leg, which is his good leg
no swelling or minimal swelling
can bend it
no weakness
no head injury
did not fall
pt has decent ROM of the knee
no tednerness
minimal suprapatellar effusion, no erythema
no calf swelling or distal ttendenress
but with weight bearing gaitan da lot of pain
xray indp reviewed, no FX but some DJD
tried to get him up and because of inability to bear weight, CT ordered to r/o occult fx
ct was neg
pt was placed in knee immob and i spoke with RN at [facility]
since he is already in skilled rehab, they can take him back and get PT eval and ortho
*Critical Care Note
Total Time (30-74mins, 75-104mins- exclusive of procedures): Not Applicable
ED Attending Note
-
Portions of this chart may have been created with voice recognition software.� Occasional wrong word or��sound alike� substitutions may have occurred due to the inherent limitations of voice recognition software.
Discharge Plan
Departure
Patient Disposition: Home (Routine Discharge)
Date of Disposition: 04/02/24
Time of Disposition: 18:13
Patient with high blood pressure during this ER visit?: Yes
Covid-19: Not Applicable
Discharge Problem:
Osteoarthritis of right knee
Instructions: Overuse Injuries (DC)
Prescriptions:
No Action
labetalol 200 mg tablet
200 mg PO DAILY
acetaminophen 500 mg Tablet
1,000 mg PO Q4H PRN (Reason: mild pain/fever)
citalopram 20 mg tablet
20 mg PO QPM
baclofen 10 mg tablet
10 mg PO DAILY
baclofen 10 mg tablet
20 mg PO QPM
metformin 1,000 mg tablet
1,000 mg PO BID@0800,1700
lisinopril 10 mg tablet
10 mg PO DAILY
rosuvastatin 5 mg tablet
5 mg PO QPM
cholecalciferol (vitamin D3) [Vitamin D3] 25 mcg (1,000 unit) Tablet
25 mcg PO DAILY
benzonatate 100 mg Capsule
100 mg PO TIDPRN PRN (Reason: cough) Qty: 0 0RF
oseltamivir 75 mg Capsule
75 mg PO BID Qty: 0 0RF
Referrals:
Deepthi Saldaña PA-C [Family Provider] -
Praveena Atkins I., DO [Active] - Follow up in 5-7 days (ORTHO)
Activity Restrictions/Additional Instructions:
WE ARE NOT ENTIRELY SURE THE CAUSE OF YOUR KNEE PAIN BUT YOUR XRAY AND CAT SCAN WERE NEGATIVE FOR FRACTURE
YOU DO HAVE ARTHRITIS
AND SOME SWELLING
ICE OFF AND ON
TYLENOL 2-3 TIMES A DAY FOR PAIN
ELEVATE
WEAR THE KNEE IMMOBILIZER DURING THE DAY WHEN YOU ARE OUT OF BED
USE A WALKER INSTEAD OF A CANE IF HE CAN MANEUVER
IF NOT THEN WEIGHT BEARING TOLERATED, USE WHEELCHAIR INSTEAD
YOU SHOULD HAVE ORTHOPEDICS EVALAUTION AND PHYSICAL THERAPY
RETURN FOR ANY CONCERNS
Interventions
Interventions:
*Nursing Disposition Last Done: 04/02/24 19:04
ED-Musculoskeletal Assessment Last Done: 04/02/24 17:17
Discharge Date and Time
Discharge Date/Time: 04/02/24 19:05
Print Language: FIJIAN
[2024-04-02] MEDS: MOTRIN 600 MG PO (16:37)
[2024-04-02 18:53] VITALS: BP 165/83
== END 2024-04-02 19:05 | disposition home or self-care (01) ==
LOC: EMR 14:12
PROVIDERS: EMERGENCY PHYSICIAN Emergency Medicine; FAMILY PHYSICIAN Physician Assistant
DX: M25.561 Pain in right knee (principal); M25.461 Effusion, right knee; M17.11 Unilateral primary osteoarthritis, right knee; I69.354 Hemiplegia and hemiparesis following cerebral infarction affecting left non-dominant side; E11.9 Type 2 diabetes mellitus without complications; I10 Essential (primary) hypertension; E78.00 Pure hypercholesterolemia, unspecified; Z87.891 Personal history of nicotine dependence; Z88.0 Allergy status to penicillin; Z88.2 Allergy status to sulfonamides
CPT/HCPCS: 99284; 29505; 73564; 73700

== ENCOUNTER → 2024-05-08 15:13 | Outpatient (REF) | payer MEDICARE, OTHER, SELFPAY | LOC: PAVMRI 15:13 | PROVIDERS: ATTENDING PHYSICIAN Orthopaedic Surgery; FAMILY PHYSICIAN Family Medicine | DX: M25.561 Pain in right knee (principal) | CPT/HCPCS: 73721 ==

== ENCOUNTER → 2024-10-02 11:02 | Outpatient (REF) | payer MEDICARE, OTHER, SELFPAY ==
[2024-10-02 12:19] LABS: % Basophils 0.4 % (0-2); % Immature Granulocytes 0.4 % (0-0.5); % Lymphocytes 23.1 % (20.5-51.1); % Monocytes 11.4 % (1.7-9.3); % Neutrophils 62.7 % (42.2-75.2); Absolute Eosinophils 0.1 10^3/uL (0-0.7); Absolute Lymphocytes 1.2 10^3/uL (1.2-3.4); Absolute Monocytes 0.6 10^3/uL (0.1-0.6); Absolute Neutrophils 3.2 10^3/uL (1.4-6.5); Hematocrit 32.2 % (39.0-52.0); Hemoglobin 9.7 g/dL (13.0-18.0); Mean Corp Hgb Conc. 30.1 g/dL (33.0-37.0); Mean Corpuscular Hgb 26.4 pg (27.0-31.0); Mean Corpuscular Volume 87.7 fL (80.0-94.0); Mean Platelet Volume 12.1 fL (7.4-10.4); Nucleated Red Blood Cells % 0 % (-); Platelet Count 120 10^3/uL (130-400); Red Blood Cell Count 3.67 10^6/uL (4.70-6.10)
[2024-10-02 12:25] LABS: ALT (SGPT) 46 U/L (0-50); AST (SGOT) 36 U/L (17-59); Albumin 3.8 g/dl (3.5-5.0); Alkaline Phosphatase 55 U/L (38-126); Blood Urea Nitrogen 20 mg/dl (9-20); Calcium 8.1 mg/dl (8.4-10.2); Carbon Dioxide 29 mmol/L (22-30); Chloride 103 mmol/L (98-107); Glucose 104 mg/dl (70-99); Potassium 4.1 mmol/L (3.5-5.1); Sodium 138 mmol/L (135-145); Total Bilirubin 0.6 mg/dl (0.2-1.3); Total Protein 5.9 g/dl (6.3-8.2); eGFR > 60.00
== END ==
LOC: OLABP 11:02
PROVIDERS: ATTENDING PHYSICIAN Family Medicine
DX: D69.6 Thrombocytopenia, unspecified (principal); I69.392 Facial weakness following cerebral infarction; F41.9 Anxiety disorder, unspecified; F32.9 Major depressive disorder, single episode, unspecified; M62.81 Muscle weakness (generalized)
CPT/HCPCS: 36415; 80053; 85025

== ENCOUNTER → 2025-02-10 10:54 | Outpatient (REF) | payer MEDICARE, OTHER, SELFPAY ==
[2025-02-10 12:33] LABS: % Basophils 0.7 % (0-2); % Immature Granulocytes 0.4 % (0-0.5); % Lymphocytes 18.9 % (20.5-51.1); % Monocytes 8.8 % (1.7-9.3); % Neutrophils 70.2 % (42.2-75.2); Absolute Basophils 0.1 10^3/uL (0-0.2); Absolute Eosinophils 0.1 10^3/uL (0-0.7); Absolute Lymphocytes 1.3 10^3/uL (1.2-3.4); Absolute Monocytes 0.6 10^3/uL (0.1-0.6); Absolute Neutrophils 4.9 10^3/uL (1.4-6.5); Hemoglobin 11.4 g/dL (13.0-18.0); Mean Corp Hgb Conc. 31.7 g/dL (33.0-37.0); Mean Corpuscular Hgb 27.1 pg (27.0-31.0); Mean Corpuscular Volume 85.7 fL (80.0-94.0); Mean Platelet Volume 11.7 fL (7.4-10.4); Nucleated Red Blood Cells % 0 % (-); Platelet Count 140 10^3/uL (130-400); Red Cell Dist. Width 15.8 % (11.5-14.5)
[2025-02-10 13:12] LABS: Blood Urea Nitrogen 26 mg/dl (9-20); Calcium 9.3 mg/dl (8.4-10.2); Carbon Dioxide 28 mmol/L (22-30); Chloride 107 mmol/L (98-107); Glucose 133 mg/dl (70-99); HDL Cholesterol 23 mg/dl; LDL Cholesterol, Calculated 38 mg/dl; Potassium 4.1 mmol/L (3.5-5.1); Sodium 144 mmol/L (135-145); Total Cholesterol 111 mg/dl (50-199); Triglyceride 250 mg/dl (10-149); Very Low Density Lipoprotein 50 mg/dl (0-30); eGFR > 60.00
[2025-02-11 03:09] LABS: Glycohemoglobin (HgbA1c) 6.1 % (4.0-5.6)
== END ==
LOC: OLABP 10:54
PROVIDERS: ATTENDING PHYSICIAN Family Medicine
DX: D69.6 Thrombocytopenia, unspecified (principal); F32.9 Major depressive disorder, single episode, unspecified; F41.9 Anxiety disorder, unspecified; R42 Dizziness and giddiness; R19.7 Diarrhea, unspecified; E55.9 Vitamin D deficiency, unspecified; G89.29 Other chronic pain; M62.838 Other muscle spasm; Z68.38 Body mass index [BMI] 38.0-38.9, adult; G47.33 Obstructive sleep apnea (adult) (pediatric); R13.14 Dysphagia, pharyngoesophageal phase; M62.59 Muscle wasting and atrophy, not elsewhere classified, multiple sites; R26.2 Difficulty in walking, not elsewhere classified; I10 Essential (primary) hypertension; E11.9 Type 2 diabetes mellitus without complications; D64.9 Anemia, unspecified
CPT/HCPCS: 36415; 80048; 80061; 83036; 85025

== ENCOUNTER → 2025-03-12 11:50 | Outpatient (REF) | payer OTHER, MEDICARE, SELFPAY ==
[2025-03-12 12:36] LABS: HDL Cholesterol 21 mg/dl; LDL Cholesterol, Calculated 30 mg/dl; Total Cholesterol 103 mg/dl (50-199); Triglyceride 263 mg/dl (10-149); Very Low Density Lipoprotein 52 mg/dl (0-30)
[2025-03-12 14:04] LABS: Glycohemoglobin (HgbA1c) 6.1 % (4.0-5.6)
== END ==
LOC: OLABP 11:50
PROVIDERS: ATTENDING PHYSICIAN Family Medicine
DX: E11.9 Type 2 diabetes mellitus without complications (principal); R13.14 Dysphagia, pharyngoesophageal phase; G47.33 Obstructive sleep apnea (adult) (pediatric)
CPT/HCPCS: 36415; 80061; 83036

== ENCOUNTER → 2025-03-31 10:34 | Outpatient (REF) | payer OTHER, MEDICARE, SELFPAY ==
[2025-03-31 12:26] LABS: Glycohemoglobin (HgbA1c) 6.1 % (4.0-5.6)
== END ==
LOC: OLABP 10:34
PROVIDERS: ATTENDING PHYSICIAN Family Medicine
DX: D69.6 Thrombocytopenia, unspecified (principal); F32.9 Major depressive disorder, single episode, unspecified; R42 Dizziness and giddiness; F41.9 Anxiety disorder, unspecified; R19.7 Diarrhea, unspecified; F32.1 Major depressive disorder, single episode, moderate; E55.9 Vitamin D deficiency, unspecified; G89.29 Other chronic pain; M62.838 Other muscle spasm; Z68.38 Body mass index [BMI] 38.0-38.9, adult; E86.1 Hypovolemia; R13.14 Dysphagia, pharyngoesophageal phase; R26.2 Difficulty in walking, not elsewhere classified; I10 Essential (primary) hypertension; E11.9 Type 2 diabetes mellitus without complications; D64.9 Anemia, unspecified
CPT/HCPCS: 36415; 83036

== ENCOUNTER → 2025-05-14 09:31 | Outpatient (REF) | payer OTHER, MEDICARE, SELFPAY ==
[2025-05-14 11:05] LABS: HDL Cholesterol 20 mg/dl; LDL Cholesterol, Calculated 28 mg/dl; Very Low Density Lipoprotein 40 mg/dl (0-30)
== END ==
LOC: OLABP 09:31
PROVIDERS: ATTENDING PHYSICIAN Family Medicine
DX: D69.6 Thrombocytopenia, unspecified (principal); F41.9 Anxiety disorder, unspecified; F32.9 Major depressive disorder, single episode, unspecified; R42 Dizziness and giddiness; E55.9 Vitamin D deficiency, unspecified; G89.29 Other chronic pain; R26.2 Difficulty in walking, not elsewhere classified; I10 Essential (primary) hypertension; E11.9 Type 2 diabetes mellitus without complications; M62.838 Other muscle spasm; R13.14 Dysphagia, pharyngoesophageal phase; M62.59 Muscle wasting and atrophy, not elsewhere classified, multiple sites
CPT/HCPCS: 36415; 80061

== ENCOUNTER → 2025-07-04 11:47 | Outpatient (REF) | payer OTHER, MEDICARE, SELFPAY ==
[2025-07-04 12:07] LABS: APTT 32.7 Sec (23.4-35.0)
[2025-07-04 12:14] LABS: Hematocrit 31.9 % (39.0-52.0); Hemoglobin 9.9 g/dL (13.0-18.0); Mean Corp Hgb Conc. 31.0 g/dL (33.0-37.0); Mean Corpuscular Volume 85.5 fL (80.0-94.0); Nucleated Red Blood Cells % 0 % (-); Platelet Count 120 10^3/uL (130-400); Red Cell Dist. Width 15.9 % (11.5-14.5)
== END ==
LOC: OLABP 11:47
PROVIDERS: ATTENDING PHYSICIAN Family Medicine
DX: R19.7 Diarrhea, unspecified (principal); E55.9 Vitamin D deficiency, unspecified; E11.9 Type 2 diabetes mellitus without complications; D64.9 Anemia, unspecified; R42 Dizziness and giddiness; I10 Essential (primary) hypertension; Z79.01 Long term (current) use of anticoagulants
CPT/HCPCS: 36415; 85025; 85730

== ENCOUNTER → 2025-07-08 11:05 | Outpatient (REF) | payer OTHER, MEDICARE, SELFPAY ==
[2025-07-08 12:43] LABS: Hematocrit 32.9 % (39.0-52.0); Hemoglobin 10.4 g/dL (13.0-18.0); Mean Corp Hgb Conc. 31.6 g/dL (33.0-37.0); Mean Corpuscular Volume 85.9 fL (80.0-94.0); Nucleated Red Blood Cells % 0 % (-); Platelet Count 145 10^3/uL (130-400); Red Cell Dist. Width 15.8 % (11.5-14.5)
== END ==
LOC: OLABP 11:05
PROVIDERS: ATTENDING PHYSICIAN Family Medicine
DX: D69.6 Thrombocytopenia, unspecified (principal); F32.9 Major depressive disorder, single episode, unspecified; F41.9 Anxiety disorder, unspecified; R42 Dizziness and giddiness; R19.7 Diarrhea, unspecified; E55.9 Vitamin D deficiency, unspecified; R26.2 Difficulty in walking, not elsewhere classified; I10 Essential (primary) hypertension; E11.9 Type 2 diabetes mellitus without complications; D64.9 Anemia, unspecified
CPT/HCPCS: 36415; 85025